=== PATIENT | male | born 1980 | race Caucasian/White ===

== ENCOUNTER 2018-10-05 15:44 | Outpatient (CLI) | payer BC ==
--- NOTE | 2018-10-05 19:24 | MRI ---
MRI RIGHT KNEE: 10/05/2018 PROVIDED CLINICAL HISTORY: Right knee pain. FINDINGS: The anterior cruciate ligament, posterior cruciate ligament, medial collateral ligament, and lateral collateral ligament complex demonstrate an intact MRI appearance, as does the extensor mechanism. There is a nondisplaced radial tear suspected, involving the posterior horn of the medial meniscus. The lateral meniscus demonstrates no evidence for tear. No focal articular cartilage defect is apparent. The amount of fluid within the knee joint appears physiologic. There is no focal concerning regional marrow or muscular signal abnormality apparent. IMPRESSION: Findings suspicious for a small, nondisplaced radial tear involving the posterior horn of the medial meniscus. POS: MICHAEL
== END 2018-10-05 15:45 | disposition home or self-care (01) ==
LOC: SCSMRI 15:44
PROVIDERS: ATTEND Internal Medicine Rheumatology
DX: M25.461 Effusion, right knee (principal)